=== PATIENT | male | born 1975 | race Caucasian/White ===

== ENCOUNTER → 2017-12-22 | Outpatient (CLI) | payer MEDICARE ==
[~2017-12-22] MED LIST: AMBIEN10 MG PO; MACRODANTIN100 MG PO; MAXIPIME1 GM IV; PRILOSEC20 MG PO
== END | disposition home or self-care (01) ==
LOC: CARD 07:17
DX: I51.7 Cardiomegaly (principal)

== ENCOUNTER → 2019-02-15 | Outpatient (CLI) | payer MEDICARE ==
[~2019-02-15] MED LIST changes: +DILAUDID2 M1 PO; +DYAZIDE 37.5-21 EACH PO; +EXALGO PO; +GLUCOPHAGE500 M1 PO; +ZESTRIL10 MG PO
--- NOTE | ~2019-02-15 | ST ---
[place], [place] EXERCISE STRESS TEST REPORT NAME: STEVEN JEFFREY [facility] #: [id number] UNIT #: [id number] ROOM: DOCTOR: HANNAH PENDLETON,MEHDI BIRTHDATE: [birth year] DOS: 02/15/2019 LEXISCAN STRESS TEST REASON FOR TEST: There was no chest pain, shortness of breath. PHYSICAL EXAMINATION: NECK: Supple. LUNGS: Clear anteriorly. HEART: Regular rhythm. PROTOCOL: Lexiscan protocol. Maximum heart rate 103, peak blood pressure 154/60. SYMPTOMS: The patient is chest pain free. EKG: Resting EKG shows sinus rhythm. Stress EKG showed no ischemia, no arrhythmias. CONCLUSION: The patient is chest pain free. EKG is nonischemic. POST-STRESS COMPLICATIONS: None. The patient received total of 0.4 mg of Lexiscan. EMHDI YOUNG MD CM:STRESS:EXERCISE STRESS TEST REPORT [id number] MEHDI YOUNG MD
--- NOTE | 2019-02-15 09:15 | NUR ---
AFTER 7 ATTEMPTS BY SEVERAL NURSES UNABLE TO START IV. CIARA BROWNING RN FROM SURGERY INSERTED A #22 MEDLINE CATHETER L. ANTECUBITAL WITH ULTRASOUND.
--- NOTE | 2019-02-15 09:30 | NUR ---
INFORMED CONSENT OBTAINED FOR A LEXISCAN STRESS TEST WITH DR. YOUNG. RESTING EKG SINUS SHILO WITH A HT RT OF 61, AND A BP OF 134/70. POX 95% VIA RA WITH CLEAR BREATH SOUNDS. COMPLETED ONE MINUTE OF A LEXISCAN PROTOCOL RECEIVING LEXISCAN 0.4 MG OVER 10 SECONDS. DEVELOPED AN "ODD" FEELING THAT WAS RELIEVED IN RECOVERY. HAD A PEAK HT RT OF 103, WITH A BP OF 148/54. LAST RECOVERY HT RT OF 78, WIHT A BP OF 154/60. AWAITING NUCLEAR IMAGING IN STABLE CONDITION.
== END | disposition home or self-care (01) ==
LOC: CARD 02-08 08:30
DX: R07.9 Chest pain, unspecified (principal); I10 Essential (primary) hypertension; E78.01 Familial hypercholesterolemia; R06.02 Shortness of breath; R07.2 Precordial pain; R53.81 Other malaise; E11.8 Type 2 diabetes mellitus with unspecified complications

== ENCOUNTER 2019-10-25 21:49 | Emergency (ER) | payer MEDICARE ==
[~2019-10-25] VITALS: Ht 187.9 cm; Wt 113.4 kg
[2019-10-26] MEDS ORDERED: PREDNISONE20 M1 PO (00:01)
[2019-10-26] MEDS ORDERED: PEPCID40 MG PO (00:01)
== END 2019-10-26 00:19 | disposition home or self-care (01) ==
LOC: ED 21:49
DX: L50.9 Urticaria, unspecified (principal); Z88.1 Allergy status to other antibiotic agents; Z79.899 Other long term (current) drug therapy

== ENCOUNTER → 2020-03-11 | Outpatient (CLI) | payer MEDICARE ==
[~2020-03-11] MED LIST changes: +PEPCID40 MG PO; +PREDNISONE20 M1 PO
== END | disposition home or self-care (01) ==
LOC: COVID19 02:50
DX: Z20.828 Contact with and (suspected) exposure to other viral communicable diseases (principal)

== ENCOUNTER → 2022-09-16 | Outpatient (CLI) | payer OTHER | END | disposition home or self-care (01) | LOC: RAD 14:05 | PROVIDERS: ATTEND Nurse Practitioner Family | DX: M96.1 Postlaminectomy syndrome, not elsewhere classified (principal); Z98.890 Other specified postprocedural states ==

== ENCOUNTER → 2025-05-31 | Outpatient (CLI) | payer OTHER ==
[~2025-05-31] MED LIST changes: +IOHEXOL 300 MG/ML 100 ML VIAL IV ONE; +IOHEXOL 300 MG/ML 100 ML VIAL ONE
== END | disposition home or self-care (01) ==
LOC: CT 05-11 11:00
PROVIDERS: ATTEND Internal Medicine Hematology & Oncology
DX: D50.9 Iron deficiency anemia, unspecified (principal); T45.4X5A Adverse effect of iron and its compounds, initial encounter; X58.XXXA Exposure to other specified factors, initial encounter; Y93.89 Activity, other specified; Y92.89 Other specified places as the place of occurrence of the external cause; Y99.8 Other external cause status

== ENCOUNTER → 2025-06-29 | Outpatient (CLI) | payer OTHER ==
[~2025-06-29] MED LIST changes: +DILAUDID8 M1 PO
== END | disposition home or self-care (01) ==
LOC: CT 06-25 10:00
PROVIDERS: ATTEND Physician Assistant
DX: E27.9 Disorder of adrenal gland, unspecified (principal); D50.9 Iron deficiency anemia, unspecified; T45.4X5A Adverse effect of iron and its compounds, initial encounter; X58.XXXA Exposure to other specified factors, initial encounter; Y93.89 Activity, other specified; Y92.89 Other specified places as the place of occurrence of the external cause; Y99.8 Other external cause status

== ENCOUNTER → 2025-07-02 | Day surgery (SDC) | payer OTHER ==
[~2025-07-02] VITALS: Ht 187.9 cm; Wt 113.4 kg
[~2025-07-02] MED LIST changes: -IOHEXOL 300 MG/ML 100 ML VIAL IV ONE; -IOHEXOL 300 MG/ML 100 ML VIAL ONE; +Lactated Ringer's Solution 1,000 ML IV ONE; +Lidocaine Hydrochloride 5 ML VIAL IV ONE; +PROPOFOL 200 MG/20 ML VIAL IV ONE
[2025-07-02 06:35] VITALS: BP 169/84
[2025-07-02 07:53] VITALS: BP 163/84
[2025-07-02 08:08] VITALS: BP 153/72
[2025-07-02 08:19] VITALS: BP 165/72
== END | disposition home or self-care (01) ==
LOC: SDC 06-29 11:00
PROVIDERS: ATTEND Surgery
DX: R63.4 Abnormal weight loss (principal); D50.8 Other iron deficiency anemias; K64.8 Other hemorrhoids; K21.9 Gastro-esophageal reflux disease without esophagitis; E78.5 Hyperlipidemia, unspecified; G47.00 Insomnia, unspecified; Z98.890 Other specified postprocedural states; Z68.32 Body mass index [BMI] 32.0-32.9, adult; Z79.899 Other long term (current) drug therapy; Z88.8 Allergy status to other drugs, medicaments and biological substances; Z80.0 Family history of malignant neoplasm of digestive organs